=== PATIENT | male | born 1955 | race Caucasian/White ===

== ENCOUNTER 2021-02-04 14:28 | Emergency (ER) | payer OTHER ==
[~2021-02-04] VITALS: Ht 180.3 cm; Wt 77.1 kg
[2021-02-04] MEDS ORDERED: NOHOMEMEDICATIONS (14:36)
[2021-02-04] MEDS ORDERED: NORCO7.5 PO (15:58)
[2021-02-04 16:03] VITALS: BP 101/68
== END 2021-02-04 16:03 | disposition home or self-care (01) ==
LOC: ER 14:28
DX: M25.561 Pain in right knee (principal)